=== PATIENT | female | born 1950 | race Hispanic/Latino ===

== ENCOUNTER 2018-12-11 05:52 | Day surgery (SDC) | payer OTHER ==
[2018-12-09 10:22] VITALS: BP 100/55
[2018-12-09 10:23] LABS: BASOPHILS % (AUTO) 0.3 % (0.0-5.0); HEMATOCRIT 38.4 % (36-48); LYMPHOCYTES % (AUTO) 25.6 % (21.0-51.0); MEAN CORPUSCULAR HEMOGLOBIN 33.1 pg (27.0-33.0); MEAN CORPUSCULAR HGB CONC 33.9 g/dL (32.0-36.0); MEAN CORPUSCULAR VOLUME 97.6 fL (79-99); MONOCYTES % (AUTO) 6.2 % (3.0-13.0); NEUTROPHILS % (AUTO) 65.9 % (40.0-77.0); PLATELET COUNT (AUTO) 213 K/uL (130-400); RED BLOOD CELL COUNT(AUTO) 3.94 MIL/uL (4.00-5.50); RED CELL DISTRIBUTION WIDTH 12.9 % (11.0-15.5); WHITE BLOOD COUNT (AUTO) 5.2 K/uL (4.8-10.8)
[2018-12-09 10:35] LABS: CREATININE 0.6 mg/dL (0.5-1.5); POTASSIUM 3.7 mmol/L (3.5-5.1)
[2018-12-11] VITALS (9 sets, daily range): BP systolic 117–134; BP diastolic 47–65
[~2018-12-11] VITALS: Ht 162.6 cm; Wt 65.8 kg
[~2018-12-11 05:52] MED LIST: GABA-531 PO; HYDROCHLOROT PO; PRAV40TA3 PO; RAMI10CA69 PO; SERT50TA12 PO; TRAV2.5D OU
[2018-12-11] MEDS ORDERED: SODIUM BICARB [NEONATAL] 4.2% 10ML SYG ONE (06:26)
[2018-12-11] MEDS ORDERED: LIDOCAINE HCL 1% MDV 50ML VIAL ONE (06:26)
[2018-12-11] MEDS ORDERED: LACTATED RINGERS 1000ML 1,000 ML IV ONE (06:32)
--- NOTE | 2018-12-11 07:16 | NUR ---
VALUABLES: CLOTHING AND CELL PHONE GIVEN TO SPOUSE - MARITA CARRIZALES. PATIENT STATED LEFT PURSE IN CAR. NO OTHER VALUABLES BROUGHT TO THE HOSPITAL.
[2018-12-11] MEDS ORDERED: MIDAZOLAM HCL 1 MG/ML 2ML VIAL ONE (07:18)
[2018-12-11] MEDS ORDERED: LIDOCAINE PF 2% 5ML ABBOJECT ONE (07:18)
[2018-12-11] MEDS ORDERED: PROPOFOL 10 MG/ML 20ML VIAL IV ONE (07:18)
[2018-12-11] MEDS ORDERED: FENTANYL CITRATE PF 50 MCG/1 ML 2ML VIAL ONE (07:18)
[2018-12-11] MEDS ORDERED: ONDANSETRON HCL 4 MG/2 ML VIAL ONE (07:43)
--- NOTE | 2018-12-11 08:25 | NUR ---
ASSESSMENT RECEIVED PT FROM PACU STAFF DEANDRE BEY. PT DOING WELL. DENIES ANY PAIN, DISCOMFORT. AT BEDSIDE.
--- NOTE | 2018-12-11 09:00 | NUR ---
DISCHARGE ORAL AND WRITTEN DISCHARGE INSTRUCTIONS GIVEN TO PT AND PTS . NO OTHER QUESTIONS AT THIS TIME.
== END 2018-12-11 09:03 | disposition home or self-care (01) ==
LOC: DAH 05:52
PROVIDERS: ATTEND Neurological Surgery
DX: M54.81 Occipital neuralgia (principal); I10 Essential (primary) hypertension; F32.9 Major depressive disorder, single episode, unspecified; Z79.899 Other long term (current) drug therapy; Z88.8 Allergy status to other drugs, medicaments and biological substances; Z98.890 Other specified postprocedural states; M47.892 Other spondylosis, cervical region; K21.9 Gastro-esophageal reflux disease without esophagitis; M19.90 Unspecified osteoarthritis, unspecified site
CPT/HCPCS: 36415; 64450; 80048; 85025; J1030; J2250; J2405; J3010; J3490 ×2; J7030; J7120; J2001; J2704